=== PATIENT | male | born 1945 | race Caucasian/White ===

== ENCOUNTER → 2018-03-13 | Outpatient (CLI) | payer BC ==
[2015-08-24 08:18] VITALS: BMI 24.7
[~2018-03-13] MED LIST: ACET-2043 PO; ALLO-2 PO; AMLO-99 PO; ASCO-188 PO; ASCO-191 PO; ASPI-692 PO; ASPI81TA94 PO; ATOR10TA24 PO; BLOO-1511 MC; BLOO-960 MC; CALC-41 PO; CELE-1 PO; CHOL200022 PO; CHRO400T2 PO; CINN500C12 PO; CLIN300C99 PO; CYAN100088 PO; DAP500I IV; GLIM2TAB43 PO; GLUC-198 PO; GRAP25CA3 PO; GRAP50CA PO; HTN MED; HYDR12.561 PO; INSU100I30 SUBQ; LANC-1120 MC; LEVO-3 PO; LEVO75TA68 PO; LEVO75TA73 PO; LIN600 PO; LISI-362 PO; LISI-374 PO; LISI20TA29 PO; LISI30TA49 PO; LOR5 PO; MAGN27TA6 PO; MAGN400C PO; MET500 PO; METF-411 PO; METF-421 PO; METF10002 PO; METO-233 PO; METO-734 PO; MILK1CAP4 PO; MILK87.5 PO; MULT1TAB54 PO; MULT1TAB64 PO; OMEG-11 PO; OXYC-865 PO; PER PO; PHYT100T4 PO; POTA99TA3 PO; POTA99TA6 PO; PRED20TA6 PO; QUIN1TAB PO; QUIN40TA37 PO; RESV50CA PO; ROSI2TAB11 PO; ROSU20TA23 PO; SIMV-49 PO; THYR48.7 PO; TRAM-420 PO; TRAM300T5 PO; UBID30CA27 PO; VITA-197 PO; VITA-200 PO; VITA-280 PO; [UNRECOGNIZED DRUG - CODE] IV; [UNRECOGNIZED DRUG - CODE] PO; [UNRECOGNIZED DRUG - CODE] PO; [UNRECOGNIZED DRUG - OTHER] PO; [UNRECOGNIZED DRUG - OTHER] SC
== END ==
LOC: LAB 11:51
PROVIDERS: ATTEND Emergency Medicine
DX: E11.9 Type 2 diabetes mellitus without complications (principal)
CPT/HCPCS: 36415; 83036

== ENCOUNTER → 2018-05-26 | Outpatient (CLI) | payer BC ==
[2015-08-24 08:18] VITALS: BMI 24.7
[~2018-05-26] MED LIST changes: +AMLO-113 PO; -AMLO-99 PO; +CHOL200018 PO; -CHOL200022 PO; -METF-411 PO; -METF-421 PO; +METF-450 PO; +METF-452 PO; +ROSU10TA5 PO
== END ==
LOC: LAB 15:09
PROVIDERS: ATTEND Emergency Medicine
DX: I10 Essential (primary) hypertension (principal); E53.8 Deficiency of other specified B group vitamins
CPT/HCPCS: 36415; 82310; 82374; 82435; 82565; 82607; 82947; 84132; 84295; 84520

== ENCOUNTER → 2018-11-16 | Outpatient (CLI) | payer BC ==
[2015-08-24 08:18] VITALS: BMI 24.7
[~2018-11-16] MED LIST changes: +ACET-2146 PO; +ACET-2708 PO; -AMLO-113 PO; +AMLO-127 PO; +ASCO-182 PO; +CYAN20004 PO; +MAGNESIUM PO; +OXYC-373 PO; -ROSU20TA23 PO; +ROSU20TA24 PO
--- NOTE | 2018-11-16 16:40 | EKG ---
FACILITY: [facility] - [place] PATIENT NAME: ROSANNE ALMONTE : [id number] MR: [id number] V: [id number] EXAM DATE: ORDERING PHYSICIAN: ONEL JEONG TECHNOLOGIST: ELOISA SANCHEZ Test Reason : SX CLEARANCE Blood Pressure : / mmHG Vent. Rate : 055 BPM Atrial Rate : 055 BPM P-R Int : 198 ms QRS Dur : 094 ms QT Int : 446 ms P-R-T Axes : 062 -32 029 degrees QTc Int : 426 ms Sinus bradycardia Left axis deviation Septal infarct , age undetermined Abnormal ECG No previous ECGs available Referred By: Confirmed By:
[2018-11-16 17:21] LABS: PLATELET COUNT, AUTOMATED 207 K/uL (150-450)
--- NOTE | 2018-11-16 18:15 | RADIOLOGY IMAGING REPORT ---
FACILITY: [facility] - [place] PATIENT NAME: Alex Umanzor : 1945 MR: [id number] V: [id number] EXAM DATE: ORDERING PHYSICIAN: ONEL JEONG TECHNOLOGIST: Location: [facility] - [place] Patient: Alex Umanzor : 1945 Visit/Account:[id number] Date of Sevice: 11/16/2018 Exam type: CHEST PA LAT History: Pre op Comparison: August 24, 2015. Findings: The lungs are free of acute effusions, infiltrates or edema. Cardiac silhouette is normal in size. This mild ectasia thoracic aorta. There are spondylotic changes at the thoracolumbar junction IMPRESSION: 1. No acute cardiopulmonary process is seen Report Dictated By: Bouchra Benavides MD at 11/16/2018 6:09 PM Report E-Signed By: Bouchra Benavides MD at 11/16/2018 6:10 PM WSN:[id number]
== END ==
LOC: LAB 16:27
PROVIDERS: ATTEND Emergency Medicine
DX: E03.9 Hypothyroidism, unspecified (principal); I10 Essential (primary) hypertension; E11.9 Type 2 diabetes mellitus without complications
CPT/HCPCS: 36415; 71046; 81001; 82040; 82247; 82310; 82374; 82435; 82465; 82565; 82607; 82947; 83036; 83718; 84075; 84132; 84153; 84155; 84295; 84443; 84450; 84460; 84478; 84520; 84550; 85025; 87071; 87205

== ENCOUNTER 2018-12-22 01:14 | Inpatient (IN) | payer BC ==
[2018-12-21 15:55] LABS: INR 0.91
[~2018-12-22] VITALS: Ht 182.9 cm; Wt 83.3 kg
[2018-12-22] VITALS (19 sets, daily range): BP systolic 120–159; BP diastolic 54–85
[~2018-12-22 01:14] MED LIST changes: +ACETAMINOPHEN 500 MG TAB PO ONE; +BACITRACIN 50000 UNIT/VIAL 100,000 UNIT in NS 0.9% 3000 ML IRRIGATION BAG 3,000 ML IR ONE; +CELECOXIB 200 MG CAP PO ONE; +CYAN100017; +FAMOTIDINE 20 MG TAB PO ONE; +LIDOCAINE/SOD BICARB 8.4% SYR ID ONE; +MIDAZOLAM 2 MG/2 ML VIAL IVP PRN; +NORMOSOL R SOLN(*) 1000 ML BAG 1,000 ML IV PRN; +PREGABALIN 150 MG CAPSULE PO ONE; +PREGABALIN 75 MG CAPSULE PO ONE; +ROPIVACAINE/EPI/CLONIDINE/KET 50 ML SYRINGE INJ ONE; +TRANEXAMIC AC 1000 MG/10ML SDV 1,000 MG in DEXTROSE 5% 50 ML BAG 50 ML IV ONE; +ceFAZolin(*) 2GM/D5W 50ML 50 ML IVPB ONE
[2018-12-22] MEDS: NORMOSOL R SOLN(*) 1000 ML BAG 1,000 ML IV PRN ×2 (11:52→14:33)
[2018-12-22] MEDS ORDERED: LIDOCAINE/SOD BICARB 8.4% SYR ID ONE (12:00)
[2018-12-22] MEDS ORDERED: ACETAMINOPHEN 500 MG TAB PO ONE (12:00)
[2018-12-22] MEDS ORDERED: PREGABALIN 75 MG CAPSULE PO ONE (12:00)
[2018-12-22] MEDS ORDERED: MIDAZOLAM 2 MG/2 ML VIAL IVP PRN (12:00)
[2018-12-22] MEDS ORDERED: CELECOXIB 200 MG CAP PO ONE (12:00)
[2018-12-22] MEDS ORDERED: ONDANSETRON 4 MG/2 ML VIAL ONE (12:02)
[2018-12-22] MEDS ORDERED: DEXAMETHASONE SOD 4 MG/ML VIAL ONE (12:02)
[2018-12-22] MEDS ORDERED: LIDOCAINE MPF 1% 5 ML VIAL ONE (12:02)
[2018-12-22] MEDS ORDERED: METOCLOPRAMIDE 10 MG/2 ML SDV ONE (12:02)
[2018-12-22] MEDS ORDERED: PROPOFOL EMUL(*) 10MG/ML 20 ML 20 ML ONE (12:02)
[2018-12-22] MEDS ORDERED: fentaNYL CITR 100 MCG/2 ML AMP ONE (12:04)
[2018-12-22] MEDS ORDERED: ROPIVACAINE/EPI/CLONIDINE/KET 50 ML SYRINGE INJ ONE (12:30)
[2018-12-22] MEDS ORDERED: FAMOTIDINE 20 MG TAB PO ONE (12:30)
[2018-12-22] MEDS ORDERED: BACITRACIN 50000 UNIT/VIAL 100,000 UNIT in NS 0.9% 3000 ML IRRIGATION BAG 3,000 ML IR ONE (12:30)
[2018-12-22] MEDS ORDERED: TRANEXAMIC AC 1000 MG/10ML SDV 1,000 MG in DEXTROSE 5% 50 ML BAG 50 ML IV ONE (12:30)
[2018-12-22] MEDS ORDERED: ceFAZolin(*) 2GM/D5W 50ML 50 ML IVPB ONE (13:00)
--- NOTE | 2018-12-22 17:08 | RADIOLOGY IMAGING REPORT ---
FACILITY: [facility] - [place] PATIENT NAME: Alex Umanzor : 1945 MR: [id number] V: [id number] EXAM DATE: ORDERING PHYSICIAN: DARI ESPINAL TECHNOLOGIST: Location: [facility] Patient: Alex Umanzor : 1945 Visit/Account:[id number] Date of Sevice: 12/22/2018 Right hip, two views. HISTORY: Right total hip. COMPARISON: None. The right femoral head has been resected and replaced with a bipolar type prosthetic components. The prosthetic femoral head has a normal relationship to the [place] acetabulum. The femoral stem is unrem arkable. Air is present in the soft tissues of the operative bed. Arterial calcifications are prese nt in the pelvis and thighs. Equipment projects on the bony pelvis. Cortical irregularities and oss ific densities are present along the left greater trochanter and left femoral neck. IMPRESSION: Unremarkable right hip replacement. Report Dictated By: Joel Pinedo MD at 12/22/2018 4:59 PM Report E-Signed By: Joel Pinedo MD at 12/22/2018 5:02 PM WSN:[id number]
[2018-12-22] MEDS ORDERED: PROMETHAZINE 25 MG/ML 1 ML AMP IVP PRN (17:20)
[2018-12-22] MEDS ORDERED: FLUSH 10 ML SYR IVP PRN (17:20)
[2018-12-22] MEDS ORDERED: HYDROmorphone HCL 2 MG/ML SDV IVP PRN (17:20)
[2018-12-22] MEDS ORDERED: BENZOCAINE/MENTHOL 1 EACH LOZG PO PRN (17:20)
[2018-12-22] MEDS ORDERED: MAGNESIUM CITRATE 300 ML BTL PO PRN (17:20)
[2018-12-22] MEDS ORDERED: LR 1000 ML BAG 1000 ML IV PRN (17:20)
[2018-12-22] MEDS ORDERED: ZOLPIDEM TARTRATE 5 MG TAB PO PRN (17:20)
[2018-12-22] MEDS ORDERED: MAGNESIUM HYDROXIDE* 30ML UDCP PO PRN (17:20)
[2018-12-22] MEDS ORDERED: ONDANSETRON 4 MG/2 ML VIAL IVP PRN (17:20)
[2018-12-22] MEDS ORDERED: BISACODYL 10 MG SUPP PR PRN (17:20)
[2018-12-22] MEDS ORDERED: diphenhydrAMINE 25 MG CAP PO PRN (17:20)
[2018-12-22] MEDS ORDERED: diphenhydrAMINE 50 MG/ML VIAL IVP PRN (17:20)
--- NOTE | 2018-12-22 17:56 | RADIOLOGY IMAGING REPORT ---
FACILITY: [facility] - [place] PATIENT NAME: Alex Umanzor : 1945 MR: [id number] V: [id number] EXAM DATE: ORDERING PHYSICIAN: DARI ESPINAL TECHNOLOGIST: Location: [facility] [place] Patient: Alex Umanzor : 1945 Visit/Account:[id number] Date of Sevice: 12/22/2018 PELVIS History: Right hip replacement. Comparison study: None. Findings: Status post recent right total hip replacement. There is no right hip fracture. There is a ir in the subcutaneous tissues. There is dense sclerosis and deformity not completely evaluated in the left femur suggesting a prior femoral shaft fracture. There is diffuse vascular calcification. IMPRESSION: 1. Status post recent total hip replacement on the right side. 2. Status post post remote left femoral diaphyseal fracture on the left. Report Dictated By: Hugo Gee MD at 12/22/2018 5:49 PM Report E-Signed By: Hugo Gee MD at 12/22/2018 5:51 PM WSN:[id number]
[2018-12-22] MEDS ORDERED: MULT-1372 PO (18:49)
[2018-12-22] MEDS ORDERED: CALC600T63 PO (18:49)
[2018-12-22] MEDS ORDERED: LEVO75TA73 PO (18:49)
--- NOTE | 2018-12-22 19:02 | OPERATIVE REPORT 1 ---
EVENT DATE: December 22, 2018 SURGEON: Jhonatan Kern MD ANESTHESIOLOGIST: Titi Gil MD ANESTHESIA: General plus spinal. INVENTORY AUDITOR: MINE Su PREOPERATIVE DIAGNOSIS Right hip osteoarthritis. POSTOPERATIVE DIAGNOSIS Right hip osteoarthritis. PROCEDURE PERFORMED Right total hip arthroplasty. FINDINGS The patient had a significant amount of arthritic changes associated with the hip. It was amenable for a total hip arthroplasty. ESTIMATED BLOOD LOSS About 200 mL. DRAINS None. COMPLICATIONS None. TOURNIQUET TIME Not applicable. IMPLANTS USED Jessica size 60 cup with a standard neutral liner for a 40 head, a size 11 standard stem with a 40 head, one dome hole plug, and three screw hole plugs. SPECIMENS None. INDICATIONS AND HISTORY This patient is a 72-year-old male who presented to Dr. Ruggiero's clinic for evaluation of pain and irritation associated with his hips. He then was referred to me for further evaluation and possible treatment options associated with an arthritic hip. We talked to him about doing a total hip arthroplasty and that it may relieve some of his pain and irritation, but it may not relieve everything given his back issues. He said he understood that, and he wanted to go ahead with that first, and so the risks and benefits were discussed with the patient, and informed consent was obtained. We told him he would probably stay at least one night in the hospital and once again that it may not really resolve his pain and problems. DESCRIPTION OF PROCEDURE As the patient was brought into the operating room, he and the procedure were both verified. He was given a spinal by Anesthesia, and he was then induced and intubated by Anesthesia. He was then turned in the lateral decubitus position, and the right hip was then prepped and draped in the usual fashion. A timeout was observed verifying the correct patient and procedure. The standard incision was made over the posterolateral aspect of the hip. It was taken through the skin and subcutaneous tissue until I got down to the IT band and gluteal musculature. I was able to cut through that and then spread that apart in order to get down to the trochanteric bursa. He had a significant amount of thickening over the trochanteric bursa and irritation over this area. Once I cleaned this up, I was then able to identify the short external rotators and identified the piriformis. Once I identified the piriformis, I cut it and tagged it for later repair. This was then followed by cutting the rest of the short external rotators and cauterized some bleeders on the backside. I was then able to identify the posterior capsule and then made a T-shaped incision in the posterior capsule in the standard fashion. Once I was able to make the standard T-shaped incision, I was then able to split the capsule and then dislocate the hip without any difficulty, and then I was able to clean off the rest of the femoral neck and then cut the femoral neck in accordance with the standard Jessica system. I then turned attention to the acetabulum. I was able to place the retractors all the way around the acetabulum. Unfortunately, he was still very tight in this area, but we were able to get good retraction. I then removed the labrum off the entire area, and then I was able to get good visualization associated with this. We then reamed down to the true pelvic floor. He still had a thickened medial wall associated with this, but we were starting to run out of posterior wall as we reamed all the way up to a 59 mm reamer. Once I had done that, this had good rim fit all the way around except for the superior corner, but it had a good fit associated with it, and so therefore, we then chose the 60 cluster hole Jessica trabecular metal cup, and I was able to place this in. It had excellent fit. As I put in the dome hole and screw hole plugs, there were no signs of turning associated with the cup itself, and it was all the way down and seemed very stable. I then irrigated with copious amounts of saline and then turned attention to the femur. Once I was on the femur, I was able to take the box cutting osteotome, followed by the canal finder, and then finally the lateralizing reamer in order to gain access to the canal. I then put in the 4 broach and broached all the way up to a 9. The nine fit very well. It had a little bit of prominence associated with it, but we did an initial trial, and it was very, very stable. We then took intraoperative x-rays, showing that it was just a little bit long, and so therefore, we just buried the stem a little bit more and put on the calcar planer one more time. I then was able to irrigate with copious amounts of saline, used the Irrisept, and put in the joint cocktail. I then put in the final prosthetics into the hip without any difficulty. We then reduced it and put it through a range of motion. There was excellent range of motion, and no signs of problems with stability as we could rotate it about 80 or 90 degrees before it dislocated. This was then followed by irrigation again and then closure of the posterior capsule with a heavy Ethibond suture. This was then followed by drill holes created in the posterior trochanter to reattach the piriformis, and then I reattached the piriformis without any difficulty, irrigated again, and then closed the gluteal musculature as well as the IT band with a #2 Stratafix. I then irrigated again and then closed the skin with a 2-0 Stratafix, then followed by a 4-0 Monocryl in the skin. We then dressed it with Steri-Strips, gauze 4 x 4's, and a soft dressing. The patient was then awakened and extubated and transferred to PACU in stable condition where he will be admitted overnight. AURELIANO
[2018-12-22] MEDS ORDERED: ASPIRIN 325 MG TAB PO SCH (21:00)
--- NOTE | 2018-12-22 21:07 | Hospitalist Consultation ---
History of Present Illness Requesting Physician Dr Kern Reason for Consult medical management comorbidities Chief Complaint DARIANA History of Present Illness 72M admitted after DARIANA. PMHx significant for HTN, DM, gout. Underwent DARIANA with Dr Kern, tolerated procedure well which proceeded without complication. Hospitalist was consulted to assist in medical management. He is doing well, pain currently controlled. History Problems: (1) Essential hypertension Status: Chronic (2) Type II diabetes mellitus Status: Chronic (3) Hypothyroidism Status: Chronic (4) Gout Status: Chronic Home Meds Active Scripts Tramadol Hcl (TRAMADOL HCL ER) 300 Mg Tab.er.24h, 300 MG PO QDAY, #30 TAB 5 Refills Prov:ONEL JEONG MD 12/04/18 Amlodipine Besylate (AMLODIPINE BESYLATE) 10 Mg Tablet, 1 TAB PO QDAY, #90 TAB 1 Refill Prov:ONEL JEONG MD 11/11/18 Metoprolol Succinate (TOPROL XL) 50 Mg Tab.er.24h, 1 TAB PO BID, #180 TAB 0 Refills Prov:HELEN LEO APRN THERMOFORMING OPERATOR-C 10/08/18 Allopurinol (Allopurinol) 300 Mg Tablet, 1 TAB PO QODAY, #45 TAB 3 Refills Prov:ONEL JEONG MD 08/24/18 Glimepiride (GLIMEPIRIDE) 2 Mg Tablet, 1 TAB PO QDAY, #90 TAB 3 Refills Prov:ONEL JEONG MD 05/26/18 Rosuvastatin Calcium (Rosuvastatin Calcium) 10 Mg Tablet, 1 TAB PO DAILY, #90 TAB 3 Refills Prov:ONEL JEONG MD 05/26/18 Metformin Hcl (METFORMIN HCL) 1,000 Mg Tablet, 1 TAB PO BID, #180 TAB 3 Refills Prov:ONEL JEONG MD 12/30/17 Lisinopril (LISINOPRIL) 40 Mg Tablet, 40 MG PO QDAY, #90 TAB 3 Refills Prov:ONEL JEONG MD 09/23/17 Reported Medications Multivitamin (DAILY VALUE) 1 Each Tablet, 1 EACH PO QDAY 12/22/18 Calcium Carbonate (CALCIUM) 600 Mg Tablet, 600 MG PO QDAY 12/22/18 Levothyroxine Sodium (LEVOTHYROXINE SODIUM) 75 Mcg Tablet, 75 MCG PO QDAY, TAB 5/14/19 Cyanocobalamin (Vitamin B-12) (B-12) 1,000 Mcg Tablet.er, 1000 MCG PO DAILY 12/17/18 Cholecalciferol (Vitamin D3) (VITAMIN D) 2,000 Unit Tablet, 2000 UNIT PO DAILY 11/16/18 Ascorbic Acid (VITAMIN C) 500 Mg Tablet, 500 MG PO DAILY, TAB 11/16/18 Potassium Gluconate (POTASSIUM) 99 Mg Tablet, 6 TAB PO DAILY 11/16/18 [Magnesium 133MG] No Conflict Check, 1 TAB PO DAILY 11/16/18 Glucosa Garcia 2KCL/Chondroitin Garcia (GLUCOSAMINE & CHONDROITIN CAP) 1 Each Capsule, 1 EACH PO DAILY, CAPSULE 11/16/18 Luther-3 Fatty Acids/Fish Oil (FISH OIL 1,000 MG CAPSULE) 1 Each Capsule, 1 EACH PO DAILY, CAPSULE 11/16/18 Ubidecarenone (COQ-10) 30 Mg Capsule, 30 MG PO DAILY, CAPSULE 11/16/18 Acetaminophen/Diphenhydramine (ACETAMINOPHEN PM CAPLET) 1 Each Tablet, 2 EACH PO QHS, TAB 11/16/18 Acetaminophen 500 Mg Tab (ACETAMINOPHEN EXTRA STRENGTH) 500 Mg Tablet, 500 MG PO BID, TAB 11/16/18 Aspirin/Acetaminophen/Caffeine (EXCEDRIN MIGRAINE CAPLET) 1 Each Tablet, 1 EACH PO TID 08/11/15 Discontinued Reported Medications Calcium Carbonate/Vitamin D3 (Calcium 600 + D Tablet) 1 Each Tablet, 1 TAB PO DAILY 03/07/15 Cyanocobalamin (Vitamin B-12) (B-12) Unknown Strength Tablet 11/19/18 Discontinued Scripts Oxycodone Hcl/Acetaminophen (OXYCODONE-ACETAMINOPHEN 5-325) 1 Each Tablet, 1 EACH PO QID, #40 TAB Prov:NOEL JEONG MD 12/11/18 Levothyroxine Sodium (LEVOTHYROXINE SODIUM) 100 Mcg Tablet, 1 TAB PO QDAY, #90 TAB 3 Refills Prov:ONEL JEONG MD 11/14/17 Allergies: Coded Allergies: quinapril (Verified Allergy, Intermediate, ARF, 11/28/15) Patient History: FH: CHF (congestive heart failure) MOTHER, , Age:76 FH: heart disease Maternal Grandfather, , Age:64 FH: lymphoma Maternal Grandmother, , Age:65 Patient's father is FATHER (t[place] boat accident [place]), , Age:40 Hx Smoking: No Smoking Status: Never Smoker Caffeine Intake: Coffee Caffeine/Cups Per Day: 2 cups Hx Alcohol Use: No Alcohol Used: Liquor Hx Substance Use Disorder: No Social Drug Use: Never Review of Systems All Systems Reviewed/Normal: Yes, Except as Noted Gastrointestinal: No Nausea, No Vomiting Musculoskeletal: Pain Exam Vital Signs Vital Signs Date Time Temp Pulse Resp B/P (MAP) Pulse Ox O2 Delivery O2 Flow Rate FiO2 12/22/18 20:41 98 Room Air 12/22/18 18:45 60 129/61 (83) 12/22/18 18:15 97.2 16 General Appearance: Alert, Awake, No Acute Distress, Afebrile Neuro: No Gross deficits Cardiovascular: Normal Rhythm & Peripheral Pulses Respiratory: No Respiratory Distress GI: Abd Soft and Non-Tender Extremities: Soft and Non Tender, Warm, Pulses, Perfused Assessment and Plan Problems: (1) S/P total hip arthroplasty Status: Acute Assessment & Plan: Tolerated procedure well, anticipate d/c tomorrow. On 325mg ASA for DVT prophylaxis. (2) Essential hypertension Status: Chronic Assessment & Plan: Continue chronic amlodipine, metoprolol. Decreased lisinopril to 20mg daily. (3) Type II diabetes mellitus Status: Chronic Assessment & Plan: Continue chronic metformin. Hold glimepiride. (4) Hypothyroidism Status: Chronic Assessment & Plan: Continue 75mcg levothyroxine. Venous Thromboembolism Antithrombotics Is Pt On Any Antithrombotics?: Yes Exam Sepsis Risk: No Definite Risk RAIN KRISTINE TABARES DO December 22, 2018 21:06
[2018-12-22] MEDS: METOPROLOL SUCC XL 50 MG TABCR 50 MG TAB.ER.24H PO SCH (21:18)
[2018-12-22] MEDS: oxyCODON/ACET (*)5/325MG (CII) 1 TAB TAB PO PRN (21:19)
[2018-12-22] MEDS: metFORMIN HCL 500 MG TAB PO SCH (21:19)
[2018-12-22] MEDS: ceFAZolin(*) 2GM/D5W 50ML 50 ML IVPB SCH (23:08)
[2018-12-23] VITALS: BP 143/80
[2018-12-23 01:00] VITALS: BP 152/74
[2018-12-23 02:00] VITALS: BP 160/71
[2018-12-23] MEDS ORDERED: LEVOTHYROXINE SOD 0.075 MG TAB PO SCH (06:00)
[2018-12-23] MEDS: ceFAZolin(*) 2GM/D5W 50ML 50 ML IVPB SCH (06:15)
[2018-12-23] MEDS: oxyCODON/ACET (*)5/325MG (CII) 1 TAB TAB PO PRN ×2 (06:16→10:33)
[2018-12-23] MEDS ORDERED: OXYC-865 PO (07:29)
[2018-12-23] MEDS ORDERED: LISINOPRIL 20 MG TAB PO SCH (09:00)
[2018-12-23] MEDS ORDERED: amLODIPine BESYL(*) 5 MG TAB PO SCH (09:00)
[2018-12-23] MEDS ORDERED: ROSUVASTATIN CALCIUM 10 MG TAB PO SCH (09:00)
[2018-12-23] MEDS: METOPROLOL SUCC XL 50 MG TABCR 50 MG TAB.ER.24H PO SCH (09:00)
[2018-12-23] MEDS: metFORMIN HCL 500 MG TAB PO SCH (09:23)
[2018-12-23 09:34] VITALS: BP 132/66
[2018-12-23] MEDS ORDERED: ASPI-757 PO (09:49)
--- NOTE | 2018-12-23 09:56 | Hospitalist Progress Note ---
Subjective Progress Notes Subjective He was admitted s/p hip replacement. He had no acute events overnight. He would like to go home today. Patient Complains of: Cardiovascular: No: Chest Pain Respiratory: No: Shortness of Breath Physical Exam Vital Signs Date Time Temp Pulse Resp B/P (MAP) Pulse Ox O2 Delivery O2 Flow Rate FiO2 12/23/18 09:34 97.6 57 16 132/66 (88) 100 Nasal Cannula 1.0 Intake and Output 12/23/18 00:59 Intake Total 1700 ml Balance 1700 ml Intake Oral 200 ml IV Total 1500 ml # Voids 2 General Appearance: Alert, Awake, No Acute Distress, Afebrile Neuro: No Gross deficits Cardiovascular: Regular Rate and Rhythm Respiratory: No Respiratory Distress, Clear to Auscultation Psych: Alert & Oriented X3, Appropriate Mood & Affect Result Diagram: 12/23/18 0533 Assessment and Plan Problems: (1) S/P total hip arthroplasty Status: Acute Assessment & Plan: Tolerated procedure well. On 325mg ASA for DVT prophylaxis. (2) Essential hypertension Status: Chronic Assessment & Plan: Continue chronic amlodipine, metoprolol and lisinopril. (3) Type II diabetes mellitus Status: Chronic Assessment & Plan: Continue chronic metformin and glimepiride. (4) Hypothyroidism Status: Chronic Assessment & Plan: Continue 75mcg levothyroxine. Exam Sepsis Risk: No Definite Risk Problem Qualifiers (1) S/P total hip arthroplasty: Laterality: right Qualified Codes: Z96.641 - Presence of right artificial hip joint YESSENIA [facility] December 23, 2018 09:56
--- NOTE | 2018-12-23 10:49 | NUR ---
Occupational Therapy Impression Pt alert and agreeable to OT tx. Occasional v/c's for posterior hip precautions, pt demonstrating improved adherence as tx progressed. Reviewed DARIANA ADLs handout. Pt educated on where to obtain sock aid/liquor inspector/shoe horn if desired. Owns a walker/toilet riser/walk-in shower. Mod (I) LB dressing. (I) UB dressing. Significant other plans to assist with ADLs and management of meryl hose. Pt declined need for further ADLs at this time. Reports no further questions/concerns for OT at this time. SpO2 WNL on room air. Pain at 5/10, nursing addressing with pain medication. Pt ready for discharge when medically appropriate. Occupational Therapy Goals Patient's Goal
[2018-12-23 11:52] VITALS: Ht 182.9 cm; Wt 83.3 kg
--- NOTE | 2018-12-23 13:01 | NUR ---
Physical Therapy Impression PT eval complete. Pt safe for DC when medically appropriate. Recommend OP PT at DC. Physical Therapy Goals Patient's Goals
[2018-12-24] MEDS ORDERED: ALLOPURINOL 300 MG TAB PO SCH (09:00)
== END 2018-12-23 12:30 | disposition home or self-care (01) | DRG 470 ==
LOC: OR 01:14 → MED 18:15
PROVIDERS: ADMIT Orthopaedic Surgery; ATTEND Orthopaedic Surgery
PROC: 0SR902A Replacement of Right Hip Joint with Metal on Polyethylene Synthetic Substitute, Uncemented, Open Approach (ICD-10-PCS; principal; 2018-12-22 14:38)
DX: M16.11 Unilateral primary osteoarthritis, right hip (principal); I10 Essential (primary) hypertension; E11.9 Type 2 diabetes mellitus without complications; M1A.9XX0 Chronic gout, unspecified, without tophus (tophi); E03.9 Hypothyroidism, unspecified; E78.5 Hyperlipidemia, unspecified
CPT/HCPCS: 36415; 36416; 72170; 82948; 85014; 85018; 85610; 86850; 86900; 86901; 97161; 97165; J0690; J1100; J2001; J2250; J2405; J2704; J2765; J3010; J7060